=== PATIENT | male | born 1950 | race African-American/Black ===

== ENCOUNTER 2020-09-04 11:49 | Emergency (ER) | payer OTHER ==
[2020-09-04 11:55] VITALS: BP 153/89; PULSE 69; TEMP 97.6; BMI 25.7
--- NOTE | 2020-09-04 12:00 | PDOC ---
Rapid Medical Evaluation Chief Complaint: Shortness of Breath Time Seen by Provider: 09/04/20 11:56 Medical Evaluation: Allergies Allergy/AdvReac Type Severity Reaction Status Date / Time No Known Allergies Allergy Verified 09/04/20 11:50 Vital Signs Temp Pulse Resp BP Pulse Ox 97.6 F 69 20 153/89 97 09/04/20 11:50 09/04/20 11:50 09/04/20 11:50 09/04/20 11:50 09/04/20 11:50 09/04/20 11:57 70 year old male hx of HTN with intermittent SOB not worse on exertion, worsening with anxiety. VSS PE: CTA RRR Plan; EKG CXr Labs Pt to precede to ED for further evaluation
--- NOTE | 2020-09-04 12:54 | PDOC ---
History of Present Illness - General Chief Complaint: Shortness of Breath Stated Complaint: SHORTNESS OF BREATH Time Seen by Provider: 09/04/20 11:56 - History of Present Illness Initial Comments: 09/04/20 12:54 70yo M w/ PMHx HTN and Parkinson's presents w/ 1day of intermittent nonexertional SOB, triggered only when he thinks about it. He was buying a sandwich yesterday when it started. It resolved spontaneously shortly thereafter and had no associated CP, back pain, neck pain diaphoresis, lightheadedness, paresthesia, or palpitations. He states, "I know I am getting oxygen but it feels like I can't get as much as I usually do." No recent illness. No rash, sore throat, last COVID test was >1month ago (negative). No pedal edema, cough, waking up in the middle of the night gasping. Past History - Medical History Allergies/Adverse Reactions: Allergies Allergy/AdvReac Type Severity Reaction Status Date / Time No Known Allergies Allergy Verified 09/04/20 11:50 Home Medications: Ambulatory Orders Amlodipine Besylate [Norvasc -] 10 mg PO DAILY 11/22/14 Cephalexin Monohydrate [Keflex -] 500 mg PO BID #14 capsule 11/22/14 Amlodipine Besylate [Norvasc -] 10 mg PO DAILY #30 tablet 11/02/16 Hydrochlorothiazide [Hctz -] 25 mg PO DAILY #30 tablet 11/02/16 COPD: No HTN: Yes - Immunization History Immunization Up to Date: Yes - Psycho-Social/Smoking History Smoking Status: No Smoking History: Never smoked Have you smoked in the past 12 months: No Number of Cigarettes Smoked Daily: 0 - Substance Abuse Hx (Audit-C & DAST Scrn) How often the patient has a drink containing alcohol: Never Score: In Men: 4 or > Positive; In Women: 3 or > Positive: 0 Screen Result (Pos requires Nsg. Audit-10AR): Negative In the last yr the pt used illegal drug/Rx for NonMed reason: No Score: Yes response is considered Positive: 0 Screen Result (Positive result requires Nsg. DAST-10): Negative Review of Systems - Review of Systems Able to Perform ROS?: Yes Is the patient limited Turkmen proficient: No Constitutional: Yes: Weight Stable. No: Symptoms Reported, Chills, Malaise, Night Sweats, Weakness HEENTM: No: Eye Pain, Blurred Vision, Recent change in vision, Throat Pain, Throat Swelling Respiratory: No: Cough, Orthopnea, Shortness of Breath, SOB with Exertion, SOB at Rest, Wheezing ABD/GI: No: Abdominal Distended, Diarrhea, Nausea, Poor Appetite, Poor Fluid Intake, Abdominal cramping, Tarry Stools : No: Burning, Dysuria, Hematuria Musculoskeletal: No: Back Pain Integumentary: No: Bruising, Rash Neurological: Yes: Tremors. No: Numbness, Paresthesia, Tingling, Dizziness Psychiatric: Yes: Anxiety Endocrine: No: Symptoms Reported Hematologic/Lymphatic: No: Symptoms Reported All Other Systems: Reviewed and Negative *Physical Exam - Vital Signs Last Vital Signs Temp Pulse Resp BP Pulse Ox 97.6 F 69 20 153/89 97 09/04/20 11:50 09/04/20 11:50 09/04/20 11:50 09/04/20 11:50 09/04/20 11:50 - Physical Exam General Appearance: Yes: Nourished, Appropriately Dressed. No: Apparent Distress HEENT: positive: EOMI, APRYL, Normal Voice. negative: Nasal Congestion, Sinus Tenderness Neck: positive: Trachea midline, Supple. negative: Tender Respiratory/Chest: positive: Lungs Clear, Normal Breath Sounds. negative: Chest Tender, Respiratory Distress, Accessory Muscle Use, Labored Respiration, Rapid RR, Decreased Breath Sounds, Crackles, Rales, Wheezing, Hyperresonant Cardiovascular: positive: Regular Rhythm, Regular Rate Gastrointestinal/Abdominal: positive: Normal Bowel Sounds, Soft Musculoskeletal: positive: Normal Inspection. negative: CVA Tenderness Extremity: positive: Normal Capillary Refill, Normal Inspection, Normal Range of Motion Integumentary: positive: Normal Color, Dry, Warm Neurologic: positive: Fully Oriented, Alert, Normal Mood/Affect, Normal Response ED Treatment Course - LABORATORY CBC & Chemistry Diagram: 09/04/20 12:43 09/04/20 12:43 Medical Decision Making - Medical Decision Making 09/04/20 13:03 70yo M with SOB and normal physical exam. no palpitations, CP, back pain, diaphoresis, normal EKG, vitals wnl -> unlikely cardiac event. Hx of HTN, black male, >65yrs -> will get single trop and basic labs. 09/04/20 14:11 labs wnl. pt reports feeling good. DC w/ PCP F/u Discharge - Discharge Information Problems reviewed: Yes Clinical Impression/Diagnosis: SOB (shortness of breath) HTN (hypertension) Qualifiers: Hypertension type: unspecified Qualified Code(s): I10 - Essential (primary) hypertension - Admission No - Follow up/Referral Referrals: [facility] [place] [Provider Group] - Patient Discharge Instructions Patient Printed Discharge Instructions: DI for Shortness of Breath, How to Manage Shortness of Breath Additional Instructions: You were seen for shortness of breath. Your lab values are normal at this time, and you report feeling good. We deemed you safe for discharge. Please follow up with your primary doctor within 48hours of leaving the ED, and come back if any symptoms persist or worsen. - Post Discharge Activity
[2020-09-04 13:14] LABS: BASO % 0.9 % (0-2.0); EOS % 0.9 % (0-4.5); HEMATOCRIT 39.4 % (35.4-49); HEMOGLOBIN 13.2 GM/dL (11.7-16.9); LYMPH % 12.9 % (8-40); MCH 31.1 pg (25.7-33.7); MCHC 33.5 g/dl (32.0-35.9); MEAN CELL VOLUME 92.6 fl (80-96); MEAN PLT VOLUME 8.4 fl (7.5-11.1); MONO % 6.5 % (3.8-10.2); NEUT % 78.8 % (42.8-82.8); PLATELET COUNT 281 K/MM3 (134-434); RBC 4.26 M/mm3 (4.00-5.60); RDW 13.2 % (11.9-15.9); WHITE BLOOD COUNT 8.7 K/mm3 (4.0-10.0)
--- NOTE | 2020-09-04 13:28 | PDOC ---
Documentation entered by Jocelynn Menard SCRIBE, acting as scribe for Deysi Mcmullen MD. Deysi Mcmullen MD: This documentation has been prepared by the Sailaja eldridge Xhesika, SCRIBE, under my direction and personally reviewed by me in its entirety. I confirm that the documentation accurately reflects all work, treatment, procedures, and medical decision making performed by me. Attending Attestation - Resident Resident Name: Malcolm Tellez - ED Attending Attestation I have performed the following: I have examined & evaluated the patient, The case was reviewed & discussed with the resident, I agree w/resident's findings & plan, Exceptions are as noted - HPI HPI: 09/04/20 12:22 The patient is a 70 year old male, with a significant past medical history of HTN, who presents to the emergency department with intermittent SOB x1.5days. Pt states he only endorses the shortness of breath when he "thinks about it" and he feels like he is not getting "enough air." Pt denies any associated chest pain, diaphoresis, headache or dizziness. He denies fever, chills, nausea, vomit, diarrhea and constipation. He denies dysuria, frequency, urgency and hematuria. Allergies: NKDA PCP: Dr. Cathy Silver - Physicial Exam PE: 09/04/20 13:25 GENERAL: well-appearing, A/Ox4, no distress, answers questions appropriately HEENT: PERRLA, EOMI, moist mucous membranes NECK/BACK: no midline ttp, no spinal step-off or deformity, no hematoma, full ROM, neck supple CARDIOVASCULAR: regular rate/rhythm, no MGR, strong peripheral pulses, capillary refill <2 seconds, extremities wwp, no edema LUNGS/RESPIRATORY: no respiratory distress, CTAB GI/ABDOMEN: symmetric [id number], normoactive BS, soft, no ttp, no midline pulsatile masses : no CVA tenderness MSK/EXTREMITIES: no muscle atrophy, no acute deformity SKIN: warm and dry, no pallor, no jaundice, no rash, no pathologic-appearing bruising, no skin breakdown, no cuts, no lesions NEUROLOGICAL: GCS 15, CN II-XII grossly intact, 5/5 strength proximally and distally, no facial droop - Medical Decision Making 09/04/20 13:26 70YOM p/w intermittent SOB and notes feeling anxious. Initial Vital Signs Temp Pulse Resp BP Pulse Ox 97.6 F 69 20 153/89 97 09/04/20 11:50 09/04/20 11:50 09/04/20 11:50 09/04/20 11:50 09/04/20 11:50 Most likely anxiety, and the patient volunteers this as a possible cause without prompting, although this is diagnosis of exclusion. Less likely toxic/metabolic issue e.g. electrolyte derangement, unlikely ACS, COPD, CHF, infectious etiology e.g. PNA/bronchitis, etc. Provider Orders Category Date Time Status EKG [ELECTROCARDIOGRAM] [CARD] Stat Cardiology 09/04/20 11:55 Completed EKG needed NOW Care 09/04/20 11:55 Completed Isolation Precautions As directed Care 09/04/20 12:49 Active CARDIAC PROFILE ([facility]) Stat Lab 09/04/20 12:43 Completed CBC WITH DIFFERENTIAL Stat Lab 09/04/20 12:43 Completed COMP METABOLIC PANEL Stat Lab 09/04/20 12:43 Completed COVID-19 Stat Lab 09/04/20 12:43 Completed N-TERMINAL BNP Stat Lab 09/04/20 12:43 Completed CHEST PA & LAT [RAD] Stat Radiology 09/04/20 12:01 Completed Lab Results WBC 8.7 K/mm3 (4.0-10.0) 09/04/20 12:43 RBC 4.26 M/mm3 (4.00-5.60) 09/04/20 12:43 Hgb 13.2 GM/dL (11.7-16.9) 09/04/20 12:43 Hct 39.4 % (35.4-49) 09/04/20 12:43 MCV 92.6 fl (80-96) 09/04/20 12:43 MCH 31.1 pg (25.7-33.7) 09/04/20 12:43 MCHC 33.5 g/dl (32.0-35.9) 09/04/20 12:43 RDW 13.2 % (11.9-15.9) 09/04/20 12:43 Plt Count 281 K/MM3 (134-434) 09/04/20 12:43 MPV 8.4 fl (7.5-11.1) 09/04/20 12:43 Absolute Neuts (auto) 6.9 K/mm3 (1.5-8.0) 09/04/20 12:43 Neutrophils % 78.8 % (42.8-82.8) 09/04/20 12:43 Lymphocytes % 12.9 % (8-40) 09/04/20 12:43 Monocytes % 6.5 % (3.8-10.2) 09/04/20 12:43 Eosinophils % 0.9 % (0-4.5) 09/04/20 12:43 Basophils % 0.9 % (0-2.0) 09/04/20 12:43 Nucleated RBC % 0 % (0-0) 09/04/20 12:43 Sodium 141 mmol/L (136-145) 09/04/20 12:43 Potassium 4.1 mmol/L (3.5-5.1) 09/04/20 12:43 Chloride 106 mmol/L (98-107) 09/04/20 12:43 Carbon Dioxide 29 mmol/L (21-32) 09/04/20 12:43 Anion Gap 6 MMOL/L (8-16) L 09/04/20 12:43 BUN 18.8 mg/dL (7-18) H 09/04/20 12:43 Creatinine 1.2 mg/dL (0.55-1.3) 09/04/20 12:43 Est GFR (CKD-EPI)AfAm 70.09 09/04/20 12:43 Est GFR (CKD-EPI)NonAf 60.47 09/04/20 12:43 Random Glucose 117 mg/dL (74-106) H 09/04/20 12:43 Calcium 10.0 mg/dL (8.5-10.1) 09/04/20 12:43 Total Bilirubin 0.6 mg/dL (0.2-1) 09/04/20 12:43 AST 13 U/L (15-37) L 09/04/20 12:43 ALT 9 U/L (13-61) L 09/04/20 12:43 Alkaline Phosphatase 100 U/L (45-117) 09/04/20 12:43 Creatine Kinase 103 U/L (26-308) 09/04/20 12:43 Troponin I < 0.02 ng/ml (0.00-0.05) 09/04/20 12:43 B-Natriuretic Peptide 100.3 pg/ml (5-125) 09/04/20 12:43 Total Protein 7.3 g/dl (6.4-8.2) 09/04/20 12:43 Albumin 3.7 g/dl (3.4-5.0) 09/04/20 12:43 COVID-19 ([facility]) Not detected (Not Detected) 09/04/20 12:43 On last exam patient feels much better. Patient is appropriate for DC home with close OP medical f/u. Return precautions discussed as per resident note, and dispo procedures per resident note. Heart Score/ECG Review #1 09/04/20 12:10 Sinus rhythm, rate 61, normal axis and intervals, no ischemic ST-T changes Discharge - Discharge Information Problems reviewed: Yes Clinical Impression/Diagnosis: SOB (shortness of breath) HTN (hypertension) Qualifiers: Hypertension type: unspecified Qualified Code(s): I10 - Essential (primary) hypertension Condition: Stable Disposition: HOME - Admission No - Follow up/Referral Referrals: [facility] [place] [facility] [place] [Provider Group] - Patient Discharge Instructions Patient Printed Discharge Instructions: DI for Shortness of Breath, How to Manage Shortness of Breath Additional Instructions: You were seen for shortness of breath. Your lab values are normal at this time, and you report feeling good. We deemed you safe for discharge. Please follow up with your primary doctor within 48hours of leaving the ED, and come back if any symptoms persist or worsen. - Post Discharge Activity
[2020-09-04 13:42] LABS: ALBUMIN 3.7 g/dl (3.4-5.0); ALK PHOS 100 U/L (45-117); ANION GAP 6 MMOL/L (8-16); BILIRUBIN,TOTAL 0.6 mg/dL (0.2-1); BLOOD UREA NITROGEN 18.8 mg/dL (7-18); CHLORIDE 106 mmol/L (98-107); CO2 29 mmol/L (21-32); CREATININE 1.2 mg/dL (0.55-1.3); GLUCOSE,RANDOM 117 mg/dL (74-106); N-TERMINAL BNP 100.3 pg/ml (5-125); POTASSIUM 4.1 mmol/L (3.5-5.1); SGOT/AST 13 U/L (15-37); SGPT/ALT 9 U/L (13-61); SODIUM 141 mmol/L (136-145); TOT PROT 7.3 g/dl (6.4-8.2)
--- NOTE | 2020-09-04 15:02 | EKG ---
Test Reason : Blood Pressure : / mmHG Vent. Rate : 061 BPM Atrial Rate : 061 BPM P-R Int : 162 ms QRS Dur : 088 ms QT Int : 400 ms P-R-T Axes : 059 055 049 degrees QTc Int : 402 ms NORMAL SINUS RHYTHM NORMAL ECG WHEN COMPARED WITH ECG OF 02-NOV-2016 03:46, NO SIGNIFICANT CHANGE WAS FOUND Confirmed by AFTAB BRUNER MD ([id number]) on 09/04/2020 3:01:49 PM Referred By: Confirmed By:AFTAB BRUNER MD
== END 2020-09-04 14:27 | disposition home or self-care (01) ==
LOC: JER 11:49
DX: R06.02 Shortness of breath (principal); I10 Essential (primary) hypertension
CPT/HCPCS: 36415; 71046-TC-FY; 80053; 82550; 83880; 84484; 85025; 93005; 93010; 99285-25; C9803; U0003

== ENCOUNTER 2021-02-02 16:10 | Inpatient (IN) | payer OTHER ==
[2021-02-02 17:21] LABS: BASO % 0.4 % (0-2.0); HEMOGLOBIN 9.3 GM/dL (11.7-16.9); LYMPH % 6.5 % (8-40); MCH 30.1 pg (25.7-33.7); MEAN PLT VOLUME 7.8 fl (7.5-11.1); MONO % 4.1 % (3.8-10.2); PLATELET COUNT 240 K/MM3 (134-434); RBC 3.09 M/mm3 (4.00-5.60); RDW 13.4 % (11.9-15.9); WHITE BLOOD COUNT 13.9 K/mm3 (4.0-10.0)
[2021-02-02 17:28] LABS: INR 1.13 (0.83-1.09); PROTHROMBIN TIME (PATIENT) 13.6 SEC (9.7-13.0)
[2021-02-02 17:46] LABS: POTASSIUM 4.5 mmol/L (3.5-5.1)
[2021-02-02 17:48] LABS: ALBUMIN 2.9 g/dl (3.4-5.0); BLOOD UREA NITROGEN 48.9 mg/dL (7-18); CALCIUM 9.3 mg/dL (8.5-10.1)
[2021-02-02] MEDS ORDERED: LACTATED RINGERS SOLUTION 1000 ML INFUS.BAG IV STA (17:51)
[2021-02-02 17:52] LABS: CREATININE 1.2 mg/dL (0.55-1.3)
[2021-02-02 17:53] LABS: BILIRUBIN,TOTAL 0.5 mg/dL (0.2-1); TOT PROT 5.6 g/dl (6.4-8.2)
[2021-02-02] MEDS ORDERED: PANTOPRAZOLE SODIUM 40 MG VIAL IVPUSH ONE (19:23)
[2021-02-02] MEDS ORDERED: DIPHTH,PERTUSS(ACELL),TET 0.5 ML DISP.SYRIN IM ONE ×2 (20:36→21:10)
[2021-02-02] MEDS ORDERED: PANTOPRAZOLE SODIUM 40 MG VIAL ONE (21:09)
[2021-02-03 03:54] VITALS: BMI 23.5
[2021-02-03 10:18] LABS: BASO % 0.2 % (0-2.0); EOS % 0.7 % (0-4.5); HEMATOCRIT 24.1 % (35.4-49); HEMOGLOBIN 7.9 GM/dL (11.7-16.9); LYMPH % 14.9 % (8-40); MCHC 32.8 g/dl (32.0-35.9); MEAN CELL VOLUME 94.5 fl (80-96); MEAN PLT VOLUME 8.2 fl (7.5-11.1); MONO % 8.3 % (3.8-10.2); NEUT % 75.9 % (42.8-82.8); PLATELET COUNT 211 K/MM3 (134-434); RBC 2.55 M/mm3 (4.00-5.60); RDW 13.3 % (11.9-15.9)
[2021-02-03] MEDS ORDERED: PANTOPRAZOLE SODIUM 40 MG VIAL IVPUSH SCH ×2 (10:30→22:00)
[2021-02-03 10:35] LABS: POTASSIUM 3.7 mmol/L (3.5-5.1)
[2021-02-03 10:49] LABS: CALCIUM 9.3 mg/dL (8.5-10.1)
[2021-02-03 10:51] LABS: ALBUMIN 2.8 g/dl (3.4-5.0)
[2021-02-03 10:53] LABS: CREATININE 1.4 mg/dL (0.55-1.3)
[2021-02-03 10:55] LABS: BILIRUBIN,TOTAL 0.5 mg/dL (0.2-1)
[2021-02-03 10:57] LABS: TOT PROT 5.2 g/dl (6.4-8.2)
[2021-02-03] MEDS: SODIUM CHLORIDE 1,000 ML IV SCH ×2 (13:28→23:00)
[2021-02-03] MEDS: PANTOPRAZOLE SODIUM 80 MG in SODIUM CHLORIDE 100 ML IVPB SCH (14:14)
[2021-02-03 16:38] LABS: HEMATOCRIT 23.2 % (35.4-49); HEMOGLOBIN 7.6 GM/dL (11.7-16.9); MCH 31.1 pg (25.7-33.7); MCHC 32.7 g/dl (32.0-35.9); MEAN CELL VOLUME 94.9 fl (80-96); MEAN PLT VOLUME 7.5 fl (7.5-11.1); PLATELET COUNT 202 K/MM3 (134-434); RBC 2.45 M/mm3 (4.00-5.60); RDW 13.5 % (11.9-15.9); WHITE BLOOD COUNT 13.5 K/mm3 (4.0-10.0)
[2021-02-04] MEDS: PANTOPRAZOLE SODIUM 80 MG in SODIUM CHLORIDE 100 ML IVPB SCH ×4 (00:03→22:30)
[2021-02-04 09:57] LABS: HEMATOCRIT 23.8 % (35.4-49); MCH 31.7 pg (25.7-33.7); MCHC 33.7 g/dl (32.0-35.9); MEAN CELL VOLUME 93.9 fl (80-96); MEAN PLT VOLUME 7.5 fl (7.5-11.1); PLATELET COUNT 207 K/MM3 (134-434); RBC 2.53 M/mm3 (4.00-5.60); RDW 13.3 % (11.9-15.9); WHITE BLOOD COUNT 12.3 K/mm3 (4.0-10.0)
[2021-02-04 10:50] LABS: POTASSIUM 3.7 mmol/L (3.5-5.1)
[2021-02-04 10:52] LABS: BLOOD UREA NITROGEN 39.2 mg/dL (7-18)
[2021-02-04 10:55] LABS: CREATININE 1.2 mg/dL (0.55-1.3)
[2021-02-04 11:02] LABS: CALCIUM 9.4 mg/dL (8.5-10.1)
[2021-02-04] MEDS ORDERED: ALPRAZolam 0.25 MG TABLET PO PRN (18:07)
[2021-02-04] MEDS: SODIUM CHLORIDE 1,000 ML IV SCH (19:46)
[2021-02-04] MEDS: MONTELUKAST NA 10 MG TABLET PO SCH (21:00)
[2021-02-05] MEDS: PANTOPRAZOLE SODIUM 80 MG in SODIUM CHLORIDE 100 ML IVPB SCH (05:29)
[2021-02-05 09:51] LABS: BASO % 0.3 % (0-2.0); EOS % 1.2 % (0-4.5); HEMATOCRIT 20.7 % (35.4-49); LYMPH % 11.2 % (8-40); MCH 31.5 pg (25.7-33.7); MCHC 33.4 g/dl (32.0-35.9); MEAN CELL VOLUME 94.4 fl (80-96); MEAN PLT VOLUME 7.6 fl (7.5-11.1); MONO % 7.8 % (3.8-10.2); NEUT % 79.5 % (42.8-82.8); PLATELET COUNT 193 K/MM3 (134-434); RDW 13.2 % (11.9-15.9)
[2021-02-05 10:06] LABS: HEMOGLOBIN 6.9 GM/dL (11.7-16.9)
[2021-02-05 10:19] LABS: POTASSIUM 3.5 mmol/L (3.5-5.1)
[2021-02-05 10:20] LABS: CALCIUM 9.2 mg/dL (8.5-10.1)
[2021-02-05 10:21] LABS: BLOOD UREA NITROGEN 20.4 mg/dL (7-18)
[2021-02-05 10:24] LABS: CREATININE 1.1 mg/dL (0.55-1.3)
[2021-02-05] MEDS: ESCITALOPRAM OXALATE 10 MG TABLET PO SCH (12:24)
[2021-02-05] MEDS: SODIUM CHLORIDE 1,000 ML IV SCH (12:25)
[2021-02-05] MEDS ORDERED: ALPRAZolam 0.25 MG TABLET PO PRN (14:31)
[2021-02-05] MEDS: POLYETHYLENE GLYCOL 3350 119 GM BTL PO SCH ×2 (15:59→21:40)
[2021-02-05] MEDS: PANTOPRAZOLE 40 MG TABLET PO SCH (21:40)
[2021-02-05] MEDS: MONTELUKAST NA 10 MG TABLET PO SCH (21:40)
[2021-02-06] MEDS: POLYETHYLENE GLYCOL 3350 119 GM BTL PO SCH ×3 (05:57→22:36)
[2021-02-06 07:32] LABS: BASO % 0.4 % (0-2.0); EOS % 3.6 % (0-4.5); HEMATOCRIT 21.9 % (35.4-49); HEMOGLOBIN 7.5 GM/dL (11.7-16.9); LYMPH % 20.8 % (8-40); MCH 31.6 pg (25.7-33.7); MCHC 34.5 g/dl (32.0-35.9); MEAN CELL VOLUME 91.6 fl (80-96); MEAN PLT VOLUME 7.5 fl (7.5-11.1); MONO % 7.8 % (3.8-10.2); NEUT % 67.4 % (42.8-82.8); PLATELET COUNT 188 K/MM3 (134-434); RBC 2.39 M/mm3 (4.00-5.60); RDW 14.5 % (11.9-15.9); WHITE BLOOD COUNT 9.6 K/mm3 (4.0-10.0)
[2021-02-06 07:49] LABS: POTASSIUM 3.4 mmol/L (3.5-5.1)
[2021-02-06 07:54] LABS: INR 1.1 (0.83-1.09); PROTHROMBIN TIME (PATIENT) 13.5 SEC (9.7-13.0)
[2021-02-06 07:58] LABS: CALCIUM 8.7 mg/dL (8.5-10.1)
[2021-02-06 07:59] LABS: ALBUMIN 2.4 g/dl (3.4-5.0); BLOOD UREA NITROGEN 15.1 mg/dL (7-18)
[2021-02-06 08:04] LABS: BILIRUBIN,TOTAL 0.5 mg/dL (0.2-1); TOT PROT 4.6 g/dl (6.4-8.2)
[2021-02-06] MEDS ORDERED: PEG 3350/NA SULF BICARB CL/KCL 4000 ML SOLN.RECON PO ONE (09:00)
[2021-02-06] MEDS: PANTOPRAZOLE 40 MG TABLET PO SCH ×2 (09:31→22:37)
[2021-02-06] MEDS: ESCITALOPRAM OXALATE 10 MG TABLET PO SCH (09:31)
[2021-02-06] MEDS: CARBIDOPA/LEVODOPA 25/100 TABLET (FP) PO SCH ×2 (14:30→22:46)
[2021-02-06] MEDS: SODIUM CHLORIDE 1,000 ML IV SCH (14:46)
[2021-02-06] MEDS ORDERED: BISACODYL 5 MG TABLET.DR (FP) PO ONE (18:00)
[2021-02-06 21:14] LABS: BASO % 0.3 % (0-2.0); EOS % 1.4 % (0-4.5); HEMOGLOBIN 8.6 GM/dL (11.7-16.9); LYMPH % 11.1 % (8-40); MCH 30.8 pg (25.7-33.7); MCHC 33.1 g/dl (32.0-35.9); MEAN PLT VOLUME 7.9 fl (7.5-11.1); MONO % 6.8 % (3.8-10.2); NEUT % 80.4 % (42.8-82.8); PLATELET COUNT 219 K/MM3 (134-434); WHITE BLOOD COUNT 10.9 K/mm3 (4.0-10.0)
[2021-02-06] MEDS: METOPROLOL TARTRATE 25 MG TABLET (FP) PO SCH (22:37)
[2021-02-06] MEDS: MONTELUKAST NA 10 MG TABLET PO SCH (22:37)
[2021-02-07] MEDS: POLYETHYLENE GLYCOL 3350 119 GM BTL PO SCH ×3 (07:04→22:24)
[2021-02-07] MEDS: CARBIDOPA/LEVODOPA 25/100 TABLET (FP) PO SCH ×3 (07:05→22:26)
[2021-02-07 08:45] LABS: BASO % 0.4 % (0-2.0); EOS % 3.1 % (0-4.5); HEMATOCRIT 22.8 % (35.4-49); HEMOGLOBIN 7.6 GM/dL (11.7-16.9); LYMPH % 16.8 % (8-40); MCHC 33.3 g/dl (32.0-35.9); MEAN CELL VOLUME 93.2 fl (80-96); MEAN PLT VOLUME 7.5 fl (7.5-11.1); MONO % 9.2 % (3.8-10.2); NEUT % 70.5 % (42.8-82.8); PLATELET COUNT 169 K/MM3 (134-434); RBC 2.44 M/mm3 (4.00-5.60); RDW 14.7 % (11.9-15.9); RETICULOCYTES 4.63 % (0.5-1.5); WHITE BLOOD COUNT 8.6 K/mm3 (4.0-10.0)
[2021-02-07 09:05] LABS: CHLORIDE 112 mmol/L (98-107); SODIUM 143 mmol/L (136-145)
[2021-02-07 09:08] LABS: CALCIUM 7.9 mg/dL (8.5-10.1)
[2021-02-07 09:09] LABS: BLOOD UREA NITROGEN 9.5 mg/dL (7-18); CO2 25 mmol/L (21-32); GLUCOSE,RANDOM 68 mg/dL (74-106)
[2021-02-07 09:12] LABS: CREATININE 0.8 mg/dL (0.55-1.3); IRON SERUM 23 ug/dL (50-175); TOTAL IRON BINDING CAPACITY 160 ug/dL (250-450)
[2021-02-07 09:19] LABS: ANION GAP 6 MMOL/L (8-16); POTASSIUM 2.8 mmol/L (3.5-5.1)
[2021-02-07] MEDS: ESCITALOPRAM OXALATE 10 MG TABLET PO SCH (10:30)
[2021-02-07] MEDS: PANTOPRAZOLE 40 MG TABLET PO SCH ×2 (10:30→22:24)
[2021-02-07] MEDS: METOPROLOL TARTRATE 25 MG TABLET (FP) PO SCH ×2 (10:30→22:23)
[2021-02-07] MEDS: KCL 10 MEQ IVPB 10 MEQ/100 ML INFUS.BAG IVPB SCH ×2 (11:57→13:42)
[2021-02-07 21:44] LABS: POTASSIUM 3.5 mmol/L (3.5-5.1)
[2021-02-07 21:46] LABS: BLOOD UREA NITROGEN 9.8 mg/dL (7-18)
[2021-02-07 21:50] LABS: CREATININE 0.9 mg/dL (0.55-1.3)
[2021-02-07 21:55] LABS: CALCIUM 9.3 mg/dL (8.5-10.1)
[2021-02-07] MEDS: POTASSIUM CHLORIDE 10 MEQ in SODIUM CHLORIDE 1,000 ML IVPB SCH ×2 (22:23→22:32)
[2021-02-07] MEDS: MONTELUKAST NA 10 MG TABLET PO SCH (22:24)
[2021-02-08] MEDS: POLYETHYLENE GLYCOL 3350 119 GM BTL PO SCH ×3 (06:23→21:52)
[2021-02-08] MEDS: CARBIDOPA/LEVODOPA 25/100 TABLET (FP) PO SCH ×3 (06:24→21:48)
[2021-02-08 08:01] LABS: BASO % 0.3 % (0-2.0); EOS % 2.8 % (0-4.5); HEMATOCRIT 30.2 % (35.4-49); HEMOGLOBIN 10.4 GM/dL (11.7-16.9); LYMPH % 12.8 % (8-40); MCH 31.4 pg (25.7-33.7); MCHC 34.4 g/dl (32.0-35.9); MEAN CELL VOLUME 91.2 fl (80-96); MEAN PLT VOLUME 7.4 fl (7.5-11.1); MONO % 9.8 % (3.8-10.2); NEUT % 74.3 % (42.8-82.8); PLATELET COUNT 210 K/MM3 (134-434); RBC 3.31 M/mm3 (4.00-5.60); RDW 14.2 % (11.9-15.9); WHITE BLOOD COUNT 11.8 K/mm3 (4.0-10.0)
[2021-02-08 08:14] LABS: POTASSIUM 3.3 mmol/L (3.5-5.1)
[2021-02-08 08:45] LABS: BLOOD UREA NITROGEN 8.2 mg/dL (7-18)
[2021-02-08 08:46] LABS: CREATININE 0.9 mg/dL (0.55-1.3)
[2021-02-08] MEDS ORDERED: KCL 10 MEQ IVPB 10 MEQ/100 ML INFUS.BAG IVPB SCH (09:00)
[2021-02-08] MEDS: PANTOPRAZOLE 40 MG TABLET PO SCH ×2 (09:54→21:46)
[2021-02-08] MEDS: METOPROLOL TARTRATE 25 MG TABLET (FP) PO SCH ×2 (09:54→21:45)
[2021-02-08] MEDS: ESCITALOPRAM OXALATE 10 MG TABLET PO SCH (09:55)
[2021-02-08] MEDS: POTASSIUM CHLORIDE 10 MEQ in SODIUM CHLORIDE 1,000 ML IVPB SCH (13:44)
[2021-02-08] MEDS ORDERED: amLODIPine BESYLATE 10 MG TABLET (FP) PO ONE (16:12)
[2021-02-08] MEDS ORDERED: hydrALAZINE HCL 20 MG/ML VIAL IVPUSH PRN (17:16)
[2021-02-08] MEDS: MONTELUKAST NA 10 MG TABLET PO SCH (21:46)
[2021-02-09] MEDS: POLYETHYLENE GLYCOL 3350 119 GM BTL PO SCH ×3 (06:48→21:23)
[2021-02-09] MEDS: CARBIDOPA/LEVODOPA 25/100 TABLET (FP) PO SCH ×3 (06:49→21:15)
[2021-02-09 08:09] LABS: BASO % 0.2 % (0-2.0); EOS % 2.5 % (0-4.5); HEMOGLOBIN 9.8 GM/dL (11.7-16.9); LYMPH % 12.3 % (8-40); MCH 30.6 pg (25.7-33.7); MCHC 33.7 g/dl (32.0-35.9); MEAN CELL VOLUME 90.8 fl (80-96); MEAN PLT VOLUME 7.1 fl (7.5-11.1); MONO % 10.4 % (3.8-10.2); NEUT % 74.6 % (42.8-82.8); PLATELET COUNT 209 K/MM3 (134-434); RBC 3.19 M/mm3 (4.00-5.60); RDW 14.3 % (11.9-15.9); WHITE BLOOD COUNT 11.7 K/mm3 (4.0-10.0)
[2021-02-09 08:34] LABS: POTASSIUM 3.2 mmol/L (3.5-5.1)
[2021-02-09 08:36] LABS: CALCIUM 8.9 mg/dL (8.5-10.1)
[2021-02-09 08:37] LABS: BLOOD UREA NITROGEN 10.3 mg/dL (7-18)
[2021-02-09 08:41] LABS: CREATININE 0.9 mg/dL (0.55-1.3)
[2021-02-09] MEDS: METOPROLOL TARTRATE 25 MG TABLET (FP) PO SCH ×2 (09:52→21:15)
[2021-02-09] MEDS: PANTOPRAZOLE 40 MG TABLET PO SCH ×2 (09:52→21:15)
[2021-02-09] MEDS: amLODIPine BESYLATE 10 MG TABLET (FP) PO SCH (09:53)
[2021-02-09] MEDS: ESCITALOPRAM OXALATE 10 MG TABLET PO SCH (09:53)
[2021-02-09] MEDS: POTASSIUM CHLORIDE 10 MEQ in SODIUM CHLORIDE 1,000 ML IVPB SCH (11:08)
[2021-02-09] MEDS ORDERED: POTASSIUM CHLORIDE ORAL LIQUID 20 MEQ/15 ML PO ONE (12:15)
[2021-02-09] MEDS ORDERED: IRON SUCROSE INJECTION 200 MG in SODIUM CHLORIDE 90 ML IVPB ONE (17:24)
[2021-02-09] MEDS: MONTELUKAST NA 10 MG TABLET PO SCH (21:15)
[2021-02-10] MEDS: POLYETHYLENE GLYCOL 3350 119 GM BTL PO SCH ×2 (05:54→13:38)
[2021-02-10] MEDS: POTASSIUM CHLORIDE 10 MEQ in SODIUM CHLORIDE 1,000 ML IVPB SCH ×3 (05:54→10:00)
[2021-02-10 07:15] LABS: BASO % 0.6 % (0-2.0); EOS % 3.5 % (0-4.5); HEMATOCRIT 29.1 % (35.4-49); HEMOGLOBIN 9.7 GM/dL (11.7-16.9); MCH 30.6 pg (25.7-33.7); MCHC 33.2 g/dl (32.0-35.9); MEAN CELL VOLUME 92.2 fl (80-96); MEAN PLT VOLUME 7.3 fl (7.5-11.1); NEUT % 66.9 % (42.8-82.8); PLATELET COUNT 206 K/MM3 (134-434); RBC 3.16 M/mm3 (4.00-5.60); RDW 14.3 % (11.9-15.9); WHITE BLOOD COUNT 9.3 K/mm3 (4.0-10.0)
[2021-02-10 07:29] LABS: POTASSIUM 3.5 mmol/L (3.5-5.1)
[2021-02-10 07:30] LABS: CALCIUM 8.7 mg/dL (8.5-10.1)
[2021-02-10 07:31] LABS: ALBUMIN 2.4 g/dl (3.4-5.0); BLOOD UREA NITROGEN 8.9 mg/dL (7-18)
[2021-02-10 07:34] LABS: CREATININE 0.8 mg/dL (0.55-1.3)
[2021-02-10 07:36] LABS: BILIRUBIN,TOTAL 0.3 mg/dL (0.2-1)
[2021-02-10] MEDS: PANTOPRAZOLE 40 MG TABLET PO SCH (09:44)
[2021-02-10] MEDS: ESCITALOPRAM OXALATE 10 MG TABLET PO SCH (09:44)
[2021-02-10] MEDS: METOPROLOL TARTRATE 25 MG TABLET (FP) PO SCH (09:44)
[2021-02-10] MEDS: amLODIPine BESYLATE 10 MG TABLET (FP) PO SCH (09:45)
[2021-02-10 11:52] VITALS: BP 134/79; PULSE 62; TEMP 97.7
[2021-02-10] MEDS: CARBIDOPA/LEVODOPA 25/100 TABLET (FP) PO SCH (13:38)
== END 2021-02-10 17:20 | disposition home or self-care (01) | DRG 378 ==
LOC: JER 16:10 → JERBED 19:27 → J6WEST-2 02-03 03:26
PROVIDERS: ADMIT Internal Medicine; ATTEND Internal Medicine
PROC: 0DB68ZX Excision of Stomach, Via Natural or Artificial Opening Endoscopic, Diagnostic (ICD-10-PCS; 2021-02-05)
PROC: 0DB98ZX Excision of Duodenum, Via Natural or Artificial Opening Endoscopic, Diagnostic (ICD-10-PCS; 2021-02-05)
PROC: 0W3P8ZZ Control Bleeding in Gastrointestinal Tract, Via Natural or Artificial Opening Endoscopic (ICD-10-PCS; 2021-02-05)
PROC: 30233N1 Transfusion of Nonautologous Red Blood Cells into Peripheral Vein, Percutaneous Approach (ICD-10-PCS; 2021-02-05)
PROC: 0DJD8ZZ Inspection of Lower Intestinal Tract, Via Natural or Artificial Opening Endoscopic (ICD-10-PCS; principal; 2021-02-08 11:30)
DX: K92.2 Gastrointestinal hemorrhage, unspecified (principal); C49.A0 Gastrointestinal stromal tumor, unspecified site; D62 Acute posthemorrhagic anemia; K31.89 Other diseases of stomach and duodenum; G20 Parkinson's disease; I10 Essential (primary) hypertension; F41.9 Anxiety disorder, unspecified; I95.1 Orthostatic hypotension; S01.112A Laceration without foreign body of left eyelid and periocular area, initial encounter; E86.9 Volume depletion, unspecified; E87.6 Hypokalemia; T14.90XA Injury, unspecified, initial encounter; X58.XXXA Exposure to other specified factors, initial encounter; Y93.9 Activity, unspecified; Y92.89 Other specified places as the place of occurrence of the external cause; Y99.9 Unspecified external cause status; K44.9 Diaphragmatic hernia without obstruction or gangrene; K31.7 Polyp of stomach and duodenum
CPT/HCPCS: 36415; 36430; 36511; 70450-TC; 71045-TC-FY; 72125-TC; 74176-TC; 74177-TC; 80048; 80053; 82272; 82378; 82550; 82728; 82941; 83540; 83550; 84443; 84484; 85025; 85027; 85045; 85610; 86140; 86850; 86900; 86901; 86922; 87804; 90715; 93005; 93010; 97116-GP; 97161-GP; 99285-25; C9803; J1756; P9038; P9058; Q9967; U0003

== ENCOUNTER 2022-11-04 04:30 | Day surgery (SDC) | payer OTHER ==
[2022-10-31 15:42] VITALS: BMI 24.3
[2022-11-04] MEDS ORDERED: DEXAMETHASONE SOD PHOSPHATE 4 MG/1 ML VIAL ONE (07:39)
[2022-11-04] MEDS ORDERED: ONDANSETRON 4 MG/2 ML VIAL ONE (07:39)
[2022-11-04] MEDS ORDERED: LIDOCAINE HCL/PF 2% SDV 5ML VIAL ONE (07:39)
[2022-11-04] MEDS ORDERED: PROPOFOL 20 ML ONE ×2 (07:39→08:31)
[2022-11-04] MEDS ORDERED: FENTANYL CITRATE/PF 50 MCG/ML VIAL ONE (07:39)
[2022-11-04] MEDS ORDERED: MIDAZOLAM HCL 2 MG/2 ML SINGLE DOSE VIAL ONE (07:40)
[2022-11-04] MEDS ORDERED: PHENYLEPHRINE HCL 10 MG/1 ML SINGLE DOSE VIAL ONE (07:41)
[2022-11-04] MEDS ORDERED: ceFAZolin SODIUM 1 GM VIAL ONE (08:07)
[2022-11-04] MEDS ORDERED: hydrALAZINE HCL 20 MG/ML VIAL ONE ×2 (08:12→09:35)
[2022-11-04] MEDS ORDERED: LIDOCAINE HCL 2% JELLY 11 ML TP ONE (08:32)
[2022-11-04] MEDS ORDERED: ceFAZolin SODIUM 1 GM VIAL IVPB ONE (08:34)
[2022-11-04] MEDS ORDERED: LIDOCAINE HCL 2% JELLY 10 ML CARTRIDGE TP ONE (08:34)
[2022-11-04] MEDS ORDERED: ONDANSETRON 4 MG/2 ML VIAL IVPUSH PRN (09:01)
[2022-11-04] MEDS ORDERED: ACETAMINOPHEN 1000 MG/100 ML BAG IVPB ONE (09:01)
[2022-11-04] MEDS ORDERED: LACTATED RINGERS SOLUTION 1,000 ML IV SCH (09:15)
[2022-11-04] MEDS ORDERED: ACETAMINOPHEN INJECTION 100 ML IVPB ONE (09:23)
[2022-11-04] MEDS ORDERED: hydrALAZINE HCL 20 MG/ML VIAL IVPUSH ONE (10:00)
[2022-11-04 10:45] VITALS: RESP 18
[2022-11-04 11:27] VITALS: BP 150/81; PULSE 68; TEMP 98.8
== END 2022-11-04 11:15 | disposition home or self-care (01) ==
LOC: JASU-SURG 04:30
PROVIDERS: ATTEND Urology
PROC: 0T7D8ZZ Dilation of Urethra, Via Natural or Artificial Opening Endoscopic (ICD-10-PCS; 2022-11-04)
PROC: 0VT08ZZ Resection of Prostate, Via Natural or Artificial Opening Endoscopic (ICD-10-PCS; principal; 2022-11-04 07:30)
DX: N40.1 Benign prostatic hyperplasia with lower urinary tract symptoms (principal); N35.014 Post-traumatic urethral stricture, male, unspecified; N13.9 Obstructive and reflux uropathy, unspecified; N32.89 Other specified disorders of bladder
CPT/HCPCS: 88305-TC; 88342-TC; 94760

== ENCOUNTER 2023-07-10 14:24 | Observation (INO) | payer OTHER ==
[2023-07-10 15:36] LABS: BASO % 0.3 % (0-2.0); HEMATOCRIT 36.7 % (35.4-49); HEMOGLOBIN 12.2 GM/dL (11.7-16.9); LYMPH % 27.1 % (8-40); MCH 30.9 pg (25.7-33.7); MCHC 33.3 g/dl (32.0-35.9); MEAN CELL VOLUME 92.7 fl (80-96); MEAN PLT VOLUME 7.9 fl (7.5-11.1); MONO % 8.6 % (3.8-10.2); PLATELET COUNT 230 10^3/uL (134-434); RBC 3.96 M/mm3 (4.00-5.60); RDW 13.4 % (11.9-15.9); WHITE BLOOD COUNT 8.6 K/mm3 (4.0-10.0)
[2023-07-10 15:43] LABS: INR 1.08 (0.83-1.09); PROTHROMBIN TIME (PATIENT) 12.5 SEC (9.7-13.0)
[2023-07-10 15:46] LABS: ACTIVATED PTT 30.2 SECONDS (25.2-36.5)
[2023-07-10] MEDS: SODIUM CHLORIDE 1,000 ML IV SCH (15:55)
[2023-07-10 16:00] LABS: POTASSIUM 4.1 mmol/L (3.5-5.1)
[2023-07-10 16:02] LABS: ALBUMIN 3.3 g/dl (3.4-5.0)
[2023-07-10 16:03] LABS: BLOOD UREA NITROGEN 23.2 mg/dL (7-18)
[2023-07-10 16:05] LABS: CREATININE 1.4 mg/dL (0.55-1.3)
[2023-07-10] MEDS ORDERED: ASPIRIN 325 MG ENTERIC COATED TABLET (FP) PO ONE (16:06)
[2023-07-10 16:07] LABS: TOT PROT 6.3 g/dl (6.4-8.2)
[2023-07-10 16:08] LABS: BILIRUBIN,TOTAL 0.8 mg/dL (0.2-1)
[2023-07-10] MEDS ORDERED: ASPIRIN 325 MG TABLET ONE (16:18)
[2023-07-10 16:22] LABS: URINE APPEARANCE CLEAR; URINE BILIRUBIN NEGATIVE (NEGATIVE); URINE COLOR YELLOW; URINE GLUCOSE (UA) NEGATIVE (NEGATIVE); URINE KETONE NEGATIVE (NEGATIVE); URINE LEUK ESTERASE NEGATIVE (NEGATIVE); URINE NITRITE NEGATIVE (NEGATIVE); URINE PROTEIN NEGATIVE (NEGATIVE)
[2023-07-10] MEDS ORDERED: METOPROLOL TARTRATE 25 MG TABLET (FP) ONE (22:33)
[2023-07-10] MEDS ORDERED: METOPROLOL TARTRATE 25 MG TABLET (FP) PO ONE (23:30)
[2023-07-11] MEDS ORDERED: LABETALOL HCL 5 MG/1 ML (100MG/20 ML VIAL) IVPUSH ONE (04:19)
[2023-07-11] MEDS ORDERED: LABETALOL HCL 20 MG/4 ML VIAL ONE (04:21)
[2023-07-11] MEDS ORDERED: ALPRAZolam 0.25 MG TABLET ONE ×2 (04:48→16:21)
[2023-07-11] MEDS: ALPRAZolam 0.25 MG TABLET PO PRN ×2 (04:50→16:24)
[2023-07-11] MEDS ORDERED: CARBIDOPA/LEVODOPA 25/100 TABLET (FP) ONE ×2 (06:11→15:05)
[2023-07-11] MEDS: CARBIDOPA/LEVODOPA 25/100 TABLET (FP) PO SCH ×3 (06:19→23:51)
[2023-07-11 06:48] LABS: BASO % 0.4 % (0-2.0); EOS % 2.4 % (0-4.5); HEMATOCRIT 35.6 % (35.4-49); HEMOGLOBIN 11.8 GM/dL (11.7-16.9); LYMPH % 21.7 % (8-40); MCH 31.1 pg (25.7-33.7); MEAN CELL VOLUME 94.2 fl (80-96); MEAN PLT VOLUME 8.4 fl (7.5-11.1); MONO % 10.4 % (3.8-10.2); NEUT % 65.1 % (42.8-82.8); PLATELET COUNT 229 10^3/uL (134-434); RBC 3.78 M/mm3 (4.00-5.60); RDW 13.4 % (11.9-15.9); WHITE BLOOD COUNT 9.7 K/mm3 (4.0-10.0)
[2023-07-11 07:04] LABS: POTASSIUM 3.5 mmol/L (3.5-5.1)
[2023-07-11 07:07] LABS: BLOOD UREA NITROGEN 18.1 mg/dL (7-18)
[2023-07-11] MEDS: METOPROLOL TARTRATE 25 MG TABLET (FP) PO SCH ×3 (07:47→23:51)
[2023-07-11] MEDS: FUROSEMIDE 20 MG TABLET (FP) PO SCH ×2 (07:47→10:13)
[2023-07-11] MEDS: VALSARTAN 160 MG TABLET PO SCH ×2 (07:47→10:13)
[2023-07-11] MEDS: ESCITALOPRAM OXALATE 10 MG TABLET PO SCH (09:04)
[2023-07-11] MEDS: FAMOTIDINE 20 MG TABLET PO SCH (09:04)
[2023-07-11] MEDS ORDERED: ATORVASTATIN CA 10 MG TABLET (FP) PO SCH (22:00)
[2023-07-12] MEDS: SODIUM CHLORIDE 1,000 ML IV SCH (00:12)
[2023-07-12 01:17] VITALS: BMI 22.1
[2023-07-12] MEDS ORDERED: hydrALAZINE HCL 20 MG/ML VIAL IVPUSH ONE (03:07)
[2023-07-12] MEDS: VALSARTAN 160 MG TABLET PO SCH ×2 (06:30→09:51)
[2023-07-12] MEDS: CARBIDOPA/LEVODOPA 25/100 TABLET (FP) PO SCH ×3 (06:30→21:18)
[2023-07-12] MEDS: METOPROLOL TARTRATE 25 MG TABLET (FP) PO SCH ×2 (09:53→21:18)
[2023-07-12] MEDS: FAMOTIDINE 20 MG TABLET PO SCH (09:53)
[2023-07-12] MEDS: ESCITALOPRAM OXALATE 10 MG TABLET PO SCH (09:54)
[2023-07-12] MEDS: amLODIPine BESYLATE 5 MG TABLET (FP) PO SCH (12:24)
[2023-07-12] MEDS: ASPIRIN 325 MG TABLET PO SCH (21:18)
[2023-07-12] MEDS: ATORVASTATIN CA 40 MG TABLET (FP) PO SCH (21:18)
[2023-07-12] MEDS: ALPRAZolam 0.25 MG TABLET PO PRN (21:19)
[2023-07-13] MEDS ORDERED: hydrALAZINE HCL 20 MG/ML VIAL IVPUSH ONE (03:07)
[2023-07-13] MEDS: CARBIDOPA/LEVODOPA 25/100 TABLET (FP) PO SCH ×3 (06:33→21:05)
[2023-07-13] MEDS: VALSARTAN 160 MG TABLET PO SCH (09:51)
[2023-07-13] MEDS: FAMOTIDINE 20 MG TABLET PO SCH (09:52)
[2023-07-13] MEDS: ESCITALOPRAM OXALATE 10 MG TABLET PO SCH (09:52)
[2023-07-13] MEDS: METOPROLOL TARTRATE 25 MG TABLET (FP) PO SCH ×2 (09:52→21:05)
[2023-07-13] MEDS: ASPIRIN 325 MG TABLET PO SCH (09:52)
[2023-07-13] MEDS: amLODIPine BESYLATE 5 MG TABLET (FP) PO SCH (09:52)
[2023-07-13] MEDS: ATORVASTATIN CA 40 MG TABLET (FP) PO SCH (21:05)
[2023-07-14] MEDS: CARBIDOPA/LEVODOPA 25/100 TABLET (FP) PO SCH (05:01)
[2023-07-14] MEDS: VALSARTAN 160 MG TABLET PO SCH (09:14)
[2023-07-14] MEDS: FAMOTIDINE 20 MG TABLET PO SCH (09:14)
[2023-07-14] MEDS: amLODIPine BESYLATE 5 MG TABLET (FP) PO SCH (09:14)
[2023-07-14] MEDS: ESCITALOPRAM OXALATE 10 MG TABLET PO SCH (09:15)
[2023-07-14] MEDS: ASPIRIN 325 MG TABLET PO SCH (09:15)
[2023-07-14] MEDS: METOPROLOL TARTRATE 25 MG TABLET (FP) PO SCH (09:54)
[2023-07-14 15:12] VITALS: BP 151/80; PULSE 69; RESP 20; TEMP 98.2
== END 2023-07-14 16:30 | disposition home or self-care (01) ==
LOC: JER 14:24 → JERBED 17:17 → J4W 07-11 23:43
PROVIDERS: ADMIT Internal Medicine; ATTEND Internal Medicine
PROC: 3E033GC Introduction of Other Therapeutic Substance into Peripheral Vein, Percutaneous Approach (ICD-10-PCS; principal; 2023-07-10)
PROC: 3E0337Z Introduction of Electrolytic and Water Balance Substance into Peripheral Vein, Percutaneous Approach (ICD-10-PCS; 2023-07-10)
DX: I63.89 Other cerebral infarction (principal); N17.9 Acute kidney failure, unspecified; G45.9 Transient cerebral ischemic attack, unspecified; G20 Parkinson's disease; I10 Essential (primary) hypertension; K59.00 Constipation, unspecified; F41.9 Anxiety disorder, unspecified; Z98.49 Cataract extraction status, unspecified eye
CPT/HCPCS: 36415; 70450-TC; 70551-TC; 80048; 80053; 80061; 81003; 82962; 83036; 84443; 84484; 85025; 85610; 85730; 86850; 86900; 86901; 93005; 93010; 93306-TC; 93880-TC; 96361; 96374; 96375; 96376; 97116-GP; 97162-GP; 99285-25; G0378